=== PATIENT | male | born 1945 | race Caucasian/White ===

== ENCOUNTER 2020-01-31 13:23 | Emergency (ER) | payer MEDICARE, OTHER ==
[2020-01-31] MEDS ORDERED: Sodium Chloride 0.9% 10 ML Syringe FLUSH PRN (13:32)
[2020-01-31] MEDS ORDERED: Aspirin 81 MG Tab.EC PO ONE (13:38)
[2020-01-31] MEDS ORDERED: Aspirin 81 MG Tab.Chew PO ONE (14:25)
--- NOTE | 2020-01-31 14:27 | CR ---
INDICATION: Chest pain. CHEST ONE VIEW: An AP upright view of the chest was obtained portable 01/31/20 - no comparison. There is an appearance of a nodular density or focal rounded area of pneumonia in the upper middle lung field on the left measuring approximately 11 mm. This could represent a focal area of pneumonia, although a neoplastic process is difficult to exclude. No other evidence of an active infiltrate or effusion was identified. The heart did not appear grossly enlarged. The aorta is slightly tortuous. Evidence of exogenous obesity is noted. IMPRESSION: 1. 11 mm area of rounded infiltrate or nodular density noted in the upper middle lung field on the left. Comparison with previous chest x-rays, if available may be helpful. Finding may represent neoplasia or focal pneumonia - correlate clinically. 2. ASD aorta. 3. Exogenous obesity. MTDD
--- NOTE | 2020-01-31 15:29 | EDM.PDOC ---
ED HPI GENERAL MEDICAL PROBLEM - General Chief Complaint: Chest Pain Stated Complaint: SHOULDER PAIN Time Seen by Provider: 01/31/20 13:40 Source of Information: Reports: Patient History Limitations: Reports: No Limitations - History of Present Illness INITIAL COMMENTS - FREE TEXT/NARRATIVE: Patient presented to the ED because of burning on the left chest and headache. There is no cough/cold/fever/chills, N/V/D. Left Arm/chest Pain Score (Numeric/FACES): 4 Past Medical History HEENT History: Reports: Impaired Vision Cardiovascular History: Reports: High Cholesterol, Hypertension Respiratory History: Reports: Sleep Apnea Gastrointestinal History: Reports: Hiatal Hernia Neurological History: Reports: Headaches, Chronic, Neuropathy, Diabetic Psychiatric History: Reports: Anxiety, Depression, PTSD Endocrine/Metabolic History: Reports: Diabetes, Type II Oncologic (Cancer) History: Reports: Malignant Melanoma Dermatologic History: Reports: Melanoma - Infectious Disease History Infectious Disease History: Reports: Chicken Pox, Measles - Past Surgical History GI Surgical History: Reports: Hernia, Inguinal, Hernia Repair/Other Musculoskeletal Surgical History: Reports: Hip Replacement Social & Family History - Tobacco Use Tobacco Use Status *Q: Former Tobacco User Used Tobacco, but Quit: Yes Month/Year Tobacco Last Used: 1989 - Caffeine Use Caffeine Use: Reports: None - Recreational Drug Use Recreational Drug Use: No ED ROS GENERAL - Review of Systems Review Of Systems: See Below Constitutional: Reports: No Symptoms HEENT: Reports: No Symptoms Respiratory: Reports: No Symptoms Cardiovascular: Reports: Chest Pain Endocrine: Reports: No Symptoms GI/Abdominal: Reports: No Symptoms : Reports: No Symptoms Musculoskeletal: Reports: No Symptoms Skin: Reports: No Symptoms Neurological: Reports: No Symptoms ED EXAM, GENERAL - Physical Exam Exam: See Below Exam Limited By: No Limitations General Appearance: Alert, No Apparent Distress Ears: Normal External Exam, Normal Canal Nose: Normal Inspection, Normal Mucosa Throat/Mouth: Normal Inspection, Normal Lips Head: Atraumatic, Normocephalic Neck: Normal Inspection, Supple Respiratory/Chest: No Respiratory Distress, Lungs Clear, Normal Breath Sounds Cardiovascular: Normal Peripheral Pulses, Regular Rate, Rhythm, No Edema GI/Abdominal: Normal Bowel Sounds, Soft, Non-Tender Back Exam: Normal Inspection, Full Range of Motion Extremities: Normal Inspection Course - Vital Signs Text/Narrative:: EKG-NSR ASA 324 mg po x1 Last Recorded V/S: Last Vital Signs Temp 36.7 C 01/31/20 13:30 Pulse 85 01/31/20 13:30 Resp 18 01/31/20 13:30 BP 141/63 H 01/31/20 13:30 Pulse Ox 98 01/31/20 13:30 - Orders/Labs/Meds Orders: Active Orders 24 hr Category Date Time Status EKG Documentation Completion [RC] ASDIRECTED Care 01/31/20 13:33 Active Sodium Chloride 0.9% [Saline Flush] Med 01/31/20 13:32 Active 10 ml FLUSH ASDIRECTED PRN Saline Lock Insert [OM.PC] Routine Oth 01/31/20 13:32 Ordered EKG 12 Lead [EK] Routine Ther 01/31/20 13:33 Ordered Medication Orders Sodium Chloride (Saline Flush) 10 ml FLUSH ASDIRECTED PRN PRN Reason: Keep Vein Open Last Admin: 01/31/20 13:40 Dose: 10 ml Documented by: DIFFCAL Labs: Laboratory Tests 01/31/20 01/31/20 01/31/20 Range/Units 14:01 14:01 14:01 WBC 9.2 (3.2-10.1) x10-3/uL RBC 5.49 (3.90-5.90) x10(6)uL Hgb 16.5 (12.9-17.7) g/dL Hct 49.6 (38.3-50.1) % MCV 90.5 (80.8-98.7) fL MCH 30.1 (27.0-33.3) pg MCHC 33.3 (28.7-35.3) g/dL RDW 14.0 (12.4-15.0) % Plt Count 211 (117-477) x10(3)uL MPV 6.9 (6.7-11.0) fL Neut % (Auto) 62.5 (40.3-71.8) % Lymph % (Auto) 28.2 (15.8-45.3) % [place] % (Auto) 7.6 (5.5-15.2) % Eos % (Auto) 1.1 (0.1-6.8) % Baso % (Auto) 0.6 (0.3-3.8) % Neut # (Auto) 5.7 (1.7-6.9) x10-3/uL Lymph # (Auto) 2.6 (0.5-4.5) x10-3/uL [place] # (Auto) 0.7 (0.0-1.2) x10-3/uL Eos # (Auto) 0.1 (0.0-0.6) x10-3/uL Baso # (Auto) 0.1 (0.0-0.3) x10-3/uL PT (9.0-11.1) sec INR (1.00-1.24) APTT (24.4-33.2) SECONDS Sodium 138 (135-145) mmol/L Potassium 4.4 (3.5-5.3) mmol/L Chloride 100 (100-110) mmol/L Carbon Dioxide 26 (21-32) mmol/L BUN 15 (7-18) mg/dL Creatinine 1.1 (0.70-1.30) mg/dL Est Cr Clr Drug Dosing 56.20 mL/min Estimated GFR (MDRD) > 60 (>60) BUN/Creatinine Ratio 13.6 (9-20) Glucose 156 H (80-116) mg/dL Calcium 9.6 (8.6-10.2) mg/dL Total Bilirubin 0.5 (0.1-1.3) mg/dL AST 15 (5-25) IU/L ALT 40 H (12-36) U/L Alkaline Phosphatase 49 L (56-112) IU/L Troponin I 4.9 (4.0-60.3) pg/mL NT-Pro-B Natriuret Pep 22 (<=450) pg/mL Total Protein 8.4 H (6.0-8.0) g/dL Albumin 4.2 (3.2-4.6) g/dL Globulin 4.2 g/dL Albumin/Globulin Ratio 1.0 //20 Range/Units 14:01 WBC (3.2-10.1) x10-3/uL RBC (3.90-5.90) x10(6)uL Hgb (12.9-17.7) g/dL Hct (38.3-50.1) % MCV (80.8-98.7) fL MCH (27.0-33.3) pg MCHC (28.7-35.3) g/dL RDW (12.4-15.0) % Plt Count (117-477) x10(3)uL MPV (6.7-11.0) fL Neut % (Auto) (40.3-71.8) % Lymph % (Auto) (15.8-45.3) % [place] % (Auto) (5.5-15.2) % Eos % (Auto) (0.1-6.8) % Baso % (Auto) (0.3-3.8) % Neut # (Auto) (1.7-6.9) x10-3/uL Lymph # (Auto) (0.5-4.5) x10-3/uL [place] # (Auto) (0.0-1.2) x10-3/uL Eos # (Auto) (0.0-0.6) x10-3/uL Baso # (Auto) (0.0-0.3) x10-3/uL PT 10.7 (9.0-11.1) sec INR 0.99 L (1.00-1.24) APTT 28.4 (24.4-33.2) SECONDS Sodium (135-145) mmol/L Potassium (3.5-5.3) mmol/L Chloride (100-110) mmol/L Carbon Dioxide (21-32) mmol/L BUN (7-18) mg/dL Creatinine (0.70-1.30) mg/dL Est Cr Clr Drug Dosing mL/min Estimated GFR (MDRD) (>60) BUN/Creatinine Ratio (9-20) Glucose (80-116) mg/dL Calcium (8.6-10.2) mg/dL Total Bilirubin (0.1-1.3) mg/dL AST (5-25) IU/L ALT (12-36) U/L Alkaline Phosphatase (56-112) IU/L Troponin I (4.0-60.3) pg/mL NT-Pro-B Natriuret Pep (<=450) pg/mL Total Protein (6.0-8.0) g/dL Albumin (3.2-4.6) g/dL Globulin g/dL Albumin/Globulin Ratio Meds: Medications Generic Name Dose Route Start Last Admin Trade Name Freq PRN Reason Stop Dose Admin Sodium Chloride 10 ml 01/31/20 13:32 01/31/20 13:40 Saline Flush FLUSH 10 ml ASDIRECTED PRN Administration Keep Vein Open Discontinued Medications Generic Name Dose Route Start Last Admin Trade Name Petrona PRN Reason Stop Dose Admin Aspirin 324 mg 01/31/20 13:38 Halfprin PO 01/31/20 13:39 ONETIME ONE Aspirin 324 mg 01/31/20 14:25 01/31/20 13:44 Aspirin PO 01/31/20 14:26 324 mg ONETIME ONE Administration Departure - Departure Time of Disposition: 15:30 Disposition: Home, Self-Care 01 Condition: Good Clinical Impression: Chest pain Instructions: Nonspecific Chest Pain, Adult Referrals: PCP,None [Primary Care Provider] - Forms: ED Department Discharge Additional Instructions: Please read discharge instructions on chest pain Follow up with your doctor next week. Sepsis Event Note (ED) - Evaluation Sepsis Screening Result: No Definite Risk - Focused Exam Vital Signs: Vital Signs Temp Pulse Resp BP Pulse Ox 01/31/20 13:30 36.7 C 85 18 141/63 H 98 - My Orders Last 24 Hours: My Active Orders 01/31/20 13:32 Sodium Chloride 0.9% [Saline Flush] 10 ml FLUSH ASDIRECTED PRN Saline Lock Insert [OM.PC] Routine 01/31/20 13:33 EKG Documentation Completion [RC] ASDIRECTED EKG 12 Lead [EK] Routine - Assessment/Plan Last 24 Hours: My Active Orders 01/31/20 13:32 Sodium Chloride 0.9% [Saline Flush] 10 ml FLUSH ASDIRECTED PRN Saline Lock Insert [OM.PC] Routine 01/31/20 13:33 EKG Documentation Completion [RC] ASDIRECTED EKG 12 Lead [EK] Routine
== END 2020-01-31 16:01 | disposition home or self-care (01) ==
LOC: FB.ED 13:23
DX: R07.9 Chest pain, unspecified (principal); R51.9 Headache, unspecified; I10 Essential (primary) hypertension; E11.9 Type 2 diabetes mellitus without complications; Z87.891 Personal history of nicotine dependence
CPT/HCPCS: 36415; 71045; 80053; 83880; 84484; 85025; 85610; 85730; 93005; 99285-25; A9270-GY

== ENCOUNTER 2020-11-28 18:12 | Emergency (ER) | payer MEDICARE, OTHER ==
[2020-11-28] MEDS ORDERED: Aspirin 81 MG Tab.Chew PO STA (18:22)
[2020-11-28] MEDS ORDERED: Nitroglycerin 0.4 MG Tab.SL SL PRN (18:23)
[2020-11-28] MEDS ORDERED: Ondansetron 4 MG/2 ML SDV IVPUSH STA (18:24)
[2020-11-28] MEDS ORDERED: Alum Hydroxide/Mag Hydroxide 15 ML, Lidocaine 2% 15 ML PO ONE ×2 (18:32)
[2020-11-28] MEDS ORDERED: Ondansetron 4 MG Tab.DIS PO ONE (18:32)
--- NOTE | 2020-11-28 18:43 | EDM.PDOC ---
ED HPI GENERAL MEDICAL PROBLEM - General Chief Complaint: Chest Pain Stated Complaint: CHEST PAIN Time Seen by Provider: 11/28/20 18:15 Source of Information: Reports: Patient, Family History Limitations: Reports: No Limitations - History of Present Illness INITIAL COMMENTS - FREE TEXT/NARRATIVE: Patient presented to the ED because of chest pain which started at 10 am today. Its heavy and and occasionally burning,5/10 with associated nausea but no vomiting. There is no vomiting, diarrhea. No fever, chills, cough or cold symptoms. He has a history of CAD without previous PA or stent placement. chest Pain Score (Numeric/FACES): 7 - Related Data Allergies Allergy/AdvReac Type Severity Reaction Status Date / Time Iodinated Contrast Media Allergy Mild Rash Verified 11/28/20 18:56 atorvastatin [From Lipitor] Allergy Muscle Verified 11/28/20 18:34 Weakness morphine Allergy Chest Pain Verified 11/28/20 18:34 Past Medical History HEENT History: Reports: Impaired Vision Cardiovascular History: Reports: High Cholesterol, Hypertension Respiratory History: Reports: Sleep Apnea Gastrointestinal History: Reports: Hiatal Hernia Neurological History: Reports: Headaches, Chronic, Neuropathy, Diabetic Psychiatric History: Reports: Anxiety, Depression, PTSD Endocrine/Metabolic History: Reports: Diabetes, Type II Oncologic (Cancer) History: Reports: Malignant Melanoma Dermatologic History: Reports: Melanoma - Infectious Disease History Infectious Disease History: Reports: Chicken Pox, Measles - Past Surgical History GI Surgical History: Reports: Hernia, Inguinal, Hernia Repair/Other Musculoskeletal Surgical History: Reports: Hip Replacement Social & Family History - Caffeine Use Caffeine Use: Reports: None ED ROS GENERAL - Review of Systems Review Of Systems: See Below Constitutional: Reports: No Symptoms HEENT: Reports: No Symptoms Respiratory: Reports: No Symptoms Cardiovascular: Reports: Chest Pain Endocrine: Reports: No Symptoms GI/Abdominal: Reports: Nausea : Reports: No Symptoms Musculoskeletal: Reports: No Symptoms Skin: Reports: No Symptoms Neurological: Reports: No Symptoms ED EXAM, GENERAL - Physical Exam Exam: See Below Exam Limited By: No Limitations General Appearance: Alert, No Apparent Distress Eye Exam: Bilateral Eye: PERRL Ears: Normal External Exam, Normal Canal Nose: Normal Inspection, Normal Mucosa, No Blood Throat/Mouth: Normal Inspection, Normal Lips, Normal Teeth, Normal Gums Head: Atraumatic, Normocephalic Neck: Normal Inspection, Supple, Non-Tender, Full Range of Motion Respiratory/Chest: No Respiratory Distress, Lungs Clear, Normal Breath Sounds, No Accessory Muscle Use, Chest Non-Tender Cardiovascular: Normal Peripheral Pulses, Regular Rate, Rhythm, No Edema, No Gallop, No JVD, No Murmur, No Rub GI/Abdominal: Normal Bowel Sounds, Soft, Non-Tender, No Organomegaly, No Distention, No Abnormal Bruit Back Exam: Normal Inspection, Full Range of Motion Extremities: Normal Inspection, Normal Range of Motion, Non-Tender, No Pedal Edema, Normal Capillary Refill Neurological: Alert, Oriented, CN II-XII Intact, Normal Cognition, Normal Gait, Normal Reflexes, No Motor/Sensory Deficits #1 Interpretation EKG Date: 11/28/20 Time: 18:14 Rhythm: NSR Rate (Beats/Min): 80 [place]: Normal P-Wave: Present QRS: Normal ST-T: Normal QT: Normal MO/PQ Interval: 229 Comparison: No Change EKG Interpretation Comments: NSR NO acute change Course - Vital Signs Text/Narrative:: Lab/EKG was reviewed and discussed with patient Zofran ODT 4 mg PO x1 ASA 324 mg PO x1 GI cocktail PO x1 Dilaudid 1 mg IV x 1 Last Recorded V/S: Last Vital Signs Temp 36.8 C 11/28/20 18:41 Pulse 80 11/28/20 18:41 Resp 19 11/28/20 18:41 BP 143/75 H 11/28/20 18:41 Pulse Ox 93 L 11/28/20 18:41 - Orders/Labs/Meds Orders: Active Orders 24 hr Category Date Time Status INFLUENZA A+B AG SCREEN [RM] Stat Lab 11/28/20 19:06 Received Isolation [COMM] Routine Oth 11/28/20 18:57 Ordered Meds: Medications Discontinued Medications Generic Name Dose Route Start Last Admin Trade Name Quangq PRN Reason Stop Dose Admin Aspirin 324 mg 11/28/20 18:22 11/28/20 18:30 Aspirin 81 Mg Tab.Chew PO 11/28/20 18:23 324 mg NOW STA Administration Al Hydroxide/Mg Hydroxide 15 0 ml 11/28/20 18:32 11/28/20 18:37 ml/ Lidocaine HCl 15 ml PO 11/28/20 18:33 30 ml ONETIME ONE Administration Hydromorphone HCl 1 mg 11/28/20 18:49 11/28/20 18:55 Hydromorphone 2 Mg/Ml Sdv IVPUSH 11/28/20 18:50 1 mg NOW STA Administration Nitroglycerin 0.4 mg 11/28/20 18:23 Nitroglycerin 0.4 Mg Tab.Sl SL Q5M PRN Chest Pain Ondansetron HCl 4 mg 11/28/20 18:24 11/28/20 18:38 Ondansetron 4 Mg/2 Ml Sdv IVPUSH 11/28/20 18:25 Not Given NOW STA Ondansetron HCl 4 mg 11/28/20 18:32 11/28/20 18:37 Ondansetron 4 Mg Tab.Dis PO 11/28/20 18:33 4 mg ONETIME ONE Administration Departure - Departure Time of Disposition: 20:00 Disposition: Home, Self-Care 01 Condition: Good Clinical Impression: Atypical chest pain, Hiatal hernia, Gastroesophageal reflux disease Instructions: Gastroesophageal Reflux Disease, Adult, [id number], Nonspecific Chest Pain, Adult, [id number] Referrals: PCP,Not In Area [Primary Care Provider] - Forms: ED Department Discharge Additional Instructions: Please read discharge instructions on atypical chest pain,Hiatal Hernia and GERD [place] diet Read the food and beverages that can make your acid reflux worse Follow up as needed Sepsis Event Note (ED) - Focused Exam Vital Signs: Vital Signs Temp Pulse Resp BP Pulse Ox 11/28/20 18:41 36.8 C 80 19 143/75 H 93 L - My Orders Last 24 Hours: My Active Orders 11/28/20 18:57 Isolation [COMM] Routine 11/28/20 19:06 INFLUENZA A+B AG SCREEN [RM] Stat - Assessment/Plan Last 24 Hours: My Active Orders 11/28/20 18:57 Isolation [COMM] Routine 11/28/20 19:06 INFLUENZA A+B AG SCREEN [RM] Stat
[2020-11-28] MEDS ORDERED: HYDROmorphone 2 MG/ML SDV IVPUSH STA (18:49)
== END 2020-11-28 20:40 | disposition home or self-care (01) ==
LOC: FB.ED 18:12
DX: R07.89 Other chest pain (principal); K44.9 Diaphragmatic hernia without obstruction or gangrene; K21.9 Gastro-esophageal reflux disease without esophagitis; E78.00 Pure hypercholesterolemia, unspecified; E11.40 Type 2 diabetes mellitus with diabetic neuropathy, unspecified; I10 Essential (primary) hypertension; Z91.041 Radiographic dye allergy status; Z88.5 Allergy status to narcotic agent; Z88.8 Allergy status to other drugs, medicaments and biological substances
CPT/HCPCS: 36415; 84484; 85025; 93005; 96374; 99285-25; A9270-GY; J1170